=== PATIENT | female | born 1935 | race Caucasian/White ===

== ENCOUNTER → 2018-09-15 09:48 | Outpatient (CLI) | payer MEDICARE, OTHER ==
[2014-07-30 15:30] VITALS: BMI 30.4
[~2018-09-15 09:48] MED LIST: ELIQUIS2.5 MG PO; PERCOCET 10/3251 TA1 PO; VENTOLIN HFA18 GM INH; ZANTAC150 MG PO
== END | disposition home or self-care (01) ==
LOC: D.NM 09:48
PROVIDERS: ATTEND Orthopaedic Surgery
DX: T84.84XA Pain due to internal orthopedic prosthetic devices, implants and grafts, initial encounter (principal)

== ENCOUNTER → 2018-09-21 17:57 | Outpatient (CLI) | payer MEDICARE, OTHER ==
[2014-07-30 15:30] VITALS: BMI 30.4
== END | disposition home or self-care (01) ==
LOC: D.LABREF 17:57
PROVIDERS: ATTEND Orthopaedic Surgery
DX: M25.561 Pain in right knee (principal)

== ENCOUNTER 2018-09-22 11:46 | Inpatient (IN) | payer MEDICARE, OTHER ==
[~2018-09-22] VITALS: Ht 172.7 cm; Wt 96.2 kg
[2018-10-18] MEDS ORDERED: DEXILANT60 MG PO (14:26)
[2018-10-19 11:57] LABS: BASOPHILS 0.4 % (0-2); EOSINOPHILS 5.8 % (0-7); HEMATOCRIT 38.7 % (36.0-48.0); HEMOGLOBIN 12.8 g/dL (12-16); IMMATURE GRANULOCYTES 0.2 % (0-5); LYMPHOCYTES 20.8 % (15-50); MCH 29.4 pg (26.0-34.0); MCHC 33.1 g/dL (31.0-37.0); MEAN PLATELET VOLUME 11.2 fL (7.4-10.4); NEUTROPHILS 63.8 % (40-80); PLATELET COUNT 249 10x3/uL (130-400); RBC 4.35 10x6/uL (4.00-5.40); RDW 14.7 % (11.5-14.5); WBC 5.7 10x3/uL (4.8-10.8)
[2018-10-19 11:59] LABS: CALC OSMOLALITY 276 mosm/kg (275-300); CALCIUM 8.9 mg/dL (8.5-10.1); CARBON DIOXIDE 24.8 mmol/L (21.0-32.0); CHLORIDE - SERUM 103 mmol/L (98-107); CREATININE - SERUM 0.6 mg/dL (0.6-1.3); GLUCOSE 79 mg/dL (74-106); POTASSIUM - SERUM 3.6 mmol/L (3.5-5.1); SODIUM 140 mmol/L (136-145); UREA NITROGEN 11 mg/dL (7-18); eGFR NON AFRICAN AMERICAN > 90 mL/min (90-120)
[2018-10-19 12:02] LABS: INR 1.01 (0.85-1.17); PROTIME 12.8 SECONDS (11.6-15.0)
[2018-10-19 12:03] LABS: APTT 30.7 SECONDS (22.8-39.4)
[2018-10-19 12:48] LABS: APPEARANCE SL CLDY (CLEAR); COLOR YELLOW (YELLOW)
[2018-10-19 12:49] LABS: BACTERIA MANY /hpf (NONE SEEN); BILIRUBIN NEGATIVE (NEGATIVE); GLUCOSE NEGATIVE (NEGATIVE); GRANULAR CAST OCC /lpf (NONE SEEN); HYALINE CAST OCC /lpf (NONE SEEN); KETONE LARGE mg/dL (NEGATIVE); MUCUS <1+ /lpf (NONE SEEN); NITRITE NEGATIVE (NEGATIVE); PROTEIN TRACE mg/dL (NEGATIVE); RED CELLS - URINE 0-5 /hpf (0-5); UROBILINOGEN NORMAL (NORMAL); WHITE CELLS - URINE 25-50 /hpf (0-5)
--- NOTE | 2018-10-21 10:04 | NUR ---
1000-DR JASSO NOTIFIED OF UA RESULTS. HE WILL PLACE HER ON ORAL ANTIBIOTICS AND REPEAT UA DOS.
[2018-10-24] VITALS (13 sets, daily range): BP systolic 100–150; BP diastolic 53–78; BMI 32.3
[2018-10-24 09:08] LABS: APPEARANCE HAZY (CLEAR); BILIRUBIN NEGATIVE (NEGATIVE); COLOR YELLOW (YELLOW); GLUCOSE NEGATIVE (NEGATIVE); KETONE MODERATE mg/dL (NEGATIVE); NITRITE NEGATIVE (NEGATIVE); PROTEIN NEGATIVE (NEGATIVE); SPECIFIC GRAVITY 1.025 (1.005-1.020); UROBILINOGEN NORMAL (NORMAL); WHITE CELLS - URINE 0-5 /hpf (0-5)
[2018-10-24 09:09] LABS: BACTERIA FEW /hpf (NONE SEEN); CALCIUM OXALATE CRYSTALS 0-5 /hpf (NONE SEEN); EPITHELIAL CELLS 0-5 /hpf (0-5); MUCUS <1+ /lpf (NONE SEEN); RED CELLS - URINE OCC /hpf (0-5)
--- NOTE | 2018-10-24 09:52 | NUR ---
PLASMA BLADE SET TO 6/8 BOVIE PAD RIGHT THIGH [id number] EXP 04/26/20
--- NOTE | 2018-10-24 15:00 | NUR ---
PATIENT STILL ASLEEP. EASILY AROUSABLE. CL IN REACH WCTM
[2018-10-25 00:53] VITALS: BP 126/61
--- NOTE | 2018-10-25 00:53 | NUR ---
RESEVED REPORT FROM NURSE. PT LYING IN BED AT THIS TIME EYES CLOSED. NO SIGNS OF DISTRESS BREATHING EVEN AND UNLABORED. WILL CONTINUE PLAN OF CARE. CALL LIGHT IN REACH.
--- NOTE | 2018-10-25 02:29 | NUR ---
I have reviewed this patient and I concur with the Shift Assessment completed by the Licensed Practical Nurse today this shift.
[2018-10-25 05:42] VITALS: BP 124/54
[2018-10-25 06:25] LABS: HEMATOCRIT 32.2 % (36.0-48.0); HEMOGLOBIN 10.1 g/dL (12-16); MCH 28.6 pg (26.0-34.0); MCHC 31.4 g/dL (31.0-37.0); MCV 91.2 fL (80.0-100.0); MEAN PLATELET VOLUME 11.1 fL (7.4-10.4); RBC 3.53 10x6/uL (4.00-5.40); RDW 15.4 % (11.5-14.5); WBC 9.6 10x3/uL (4.8-10.8)
[2018-10-25 09:13] VITALS: BP 133/56
[2018-10-25 14:08] VITALS: BP 164/59
--- NOTE | 2018-10-25 16:01 | MORECARE ---
CASE MANAGEMENT DISCHARGE SUMMARY PATIENT: CAT CASTILLO UNIT: [id number] ADM DATE: 10/24/18 AGE: 82 : 37 SEX: F ROOM/BED: D.9460 AUTHOR: GRETCHEN,DOC PHYSICIAN: REFERRING PHYSICIAN: LYNETTE JASSO MD DATE OF SERVICE: 10/25/18 Discharge Plan Patient Name: CAT CASTILLO Facility: [facility]:[place] : 1935 Planned Disposition: [facility] Facility Anticipated Discharge Date: Discharge Date: Expected LOS: Initial Reviewer: [email or web address] Initial Review Date: 10/24/2018 Generated: 10/25/18 5:01 pm Comments DCP- Discharge Planning Updated by [email or web address]: Maricel Salazar on 10/25/18 3:[address] Patient Name: CAT CASTILLO Admission Status: Elective Accout number: [id number] Admission Date: 10-24-2018 : 1935 Admission Diagnosis: Attending: LYNETTE JASSO Current LOS: 1 Anticipated DC Date: Planned Disposition: [facility] Facility Primary Insurance: MEDICARE A & B Discharge Planning Comments: CM met with patient to complete initial dc planning assessment. CM educated patient on the CM role and verbal consent given by patient to complete assessment. Patient lives at home with her where she is independent with her care. At discharge patient plans to go to [facility]. PEYMAN signed and placed in chart. She feels this is a safe discharge. CM discussed availability of home health, rehab services, and medical equipment. Patient stated that she has a BSC, walker, cane at home. I will send clinicals to [facility] and let them know. Patient denied known discharge needs at this time. CM will continue to follow and will assist as needed with dc plans/needs. Marketing And Communications Officer: Maricel Salazar DCPIA - Discharge Planning Initial Assessment Updated by [email or web address]: Maricel Salazar on 10/25/18 3:59 pm * Is the patient Alert and Oriented? Yes * How many steps to enter\exit or inside your home? * PCP [facility] * Pharmacy [facility] * Preadmission Environment Home with Family * ADLs Independent * Equipment Bedside Commode Cane Walker * List name and contact numbers for known caregivers / representatives who currently or will assist patient after discharge: Harrison Castillo () [phone] * Verbal permission to speak to the caregivers and representatives has been obtained from the patient. N/A * Community resources currently utilized None * Additional services required to return to the preadmission environment? Yes * Can the patient safely return to the preadmission environment? No * Has this patient been hospitalized within the prior 30 days at any hospital? No Patient Name: CAT CASTILLO Page 96390 at 1601 All edits/amendments must be made on the electronic document DICTATION DATE: 10/25/181600 AUTO REPAIR SHOP MANAGER: MACKENZIE 10/25/18 160 RPT#: [id number] DC DATE: STATUS: ADM IN [facility] [address] [place] [address] END OF REPORT
[2018-10-25 17:47] VITALS: BP 145/58
--- NOTE | 2018-10-25 18:21 | NUR ---
I have reviewed this patient and I concur with the Shift Assessment completed by the Licensed Practical Nurse today this shift.
--- NOTE | 2018-10-25 19:35 | NUR ---
LYING IN BED. ALERT AND ORIENTED X4. RESP EVEN AND NONLABORED. O2 @ 2L/NC. BBS CTA BUT DIMINISHED IN BLL. BS HYPOACTIVE. DENIES N/V. ZOFRAN DRIP @ 4.7 ML/HR INFUSING IN LT AC. DRSG NOTED TO RT KNEE. EDEMA TO RT KNEE. SCD ON LLE. DENIES PAIN. SR ELEVATED X2. CL IN REACH.
--- NOTE | 2018-10-25 20:30 | NUR ---
STATES DR. MTZ CAME TO SEE HER. NEW ORDERS NOTED.
[2018-10-25 21:18] VITALS: BP 147/66
--- NOTE | 2018-10-25 22:30 | NUR ---
ADDITIONAL IV STARTED IN RT FOREARM FOR NS @ 75 ML/HR AND PROCAL @ 30 ML/HR.
[2018-10-25 22:41] LABS: HEMATOCRIT 30.8 % (36.0-48.0); HEMOGLOBIN 9.8 g/dL (12-16)
--- NOTE | 2018-10-25 23:00 | NUR ---
CONSENTS SIGNED AND ON CHART FOR EGD IN AM. PT VERBALIZED UNDERSTANDING OF BEING NPO AFTER MIDNIGHT.
[2018-10-26 01:20] VITALS: BP 120/63
[2018-10-26 05:08] LABS: BASOPHILS 0.2 % (0-2); EOSINOPHILS 0.4 % (0-7); HEMATOCRIT 30.1 % (36.0-48.0); HEMOGLOBIN 9.8 g/dL (12-16); IMMATURE GRANULOCYTES 0.2 % (0-5); LYMPHOCYTES 8.5 % (15-50); MCH 29.3 pg (26.0-34.0); MCHC 32.6 g/dL (31.0-37.0); MCV 90.1 fL (80.0-100.0); MEAN PLATELET VOLUME 11.4 fL (7.4-10.4); MONOCYTES 12.5 % (2-11); NEUTROPHILS 78.2 % (40-80); PLATELET COUNT 183 10x3/uL (130-400); RBC 3.34 10x6/uL (4.00-5.40); RDW 15.5 % (11.5-14.5)
[2018-10-26 05:31] LABS: CALC OSMOLALITY 274 mosm/kg (275-300); CALCIUM 7.9 mg/dL (8.5-10.1); CARBON DIOXIDE 19.7 mmol/L (21.0-32.0); CHLORIDE - SERUM 105 mmol/L (98-107); CREATININE - SERUM 0.6 mg/dL (0.6-1.3); GLUCOSE 88 mg/dL (74-106); POTASSIUM - SERUM 3.7 mmol/L (3.5-5.1); SODIUM 139 mmol/L (136-145); UREA NITROGEN 8 mg/dL (7-18); eGFR NON AFRICAN AMERICAN > 90 mL/min (90-120)
--- NOTE | 2018-10-26 05:47 | NUR ---
CPM ON AT THIS TIME.
[2018-10-26 05:58] VITALS: BP 136/64
[2018-10-26 06:48] LABS: INR 1.21 (0.85-1.17); PROTIME 14.7 SECONDS (11.6-15.0)
[2018-10-26 08:31] LABS: % SATURATION 11 % (15-55); IRON 21 ug/dl (35-150); TOTAL IRON BIND CAPACITY 185 ug/dl (260-445); UNSAT IRON BIND CAPACITY 164 ug/dl (150-375)
--- NOTE | 2018-10-26 09:00 | NUR ---
ASSESSMENT PER FLOW SHEET. PT IS BACK FROM GI LAB. SHE IS AWAKE AND WITHOUT DISTRESS.FAMILY AT BEDSIDE
[2018-10-26 09:47] VITALS: BP 140/71
--- NOTE | 2018-10-26 10:36 | NUR ---
SPOKE WITH ENRIQUE,BAGGAGEMAN. WE ARE WAITING FOR TELEMETRY TO BE AVAILABLE FOR USE
[2018-10-26 12:00] VITALS: BP 173/71
--- NOTE | 2018-10-26 12:03 | MORECARE ---
CASE MANAGEMENT DISCHARGE SUMMARY PATIENT: CAT CASTILLO UNIT: [id number] ADM DATE: 10/24/18 AGE: 82 : 37 SEX: F ROOM/BED: D.6202 AUTHOR: GRETCHEN,DOC PHYSICIAN: REFERRING PHYSICIAN: LYNETTE JASSO MD DATE OF SERVICE: 10/26/18 Discharge Plan Patient Name: CAT CASTILLO Facility: [facility]:[place] : 1935 Planned Disposition: Snf Facility Anticipated Discharge Date: Discharge Date: Expected LOS: Initial Reviewer: [email or web address] Initial Review Date: 10/24/2018 Generated: 10/26/18 1:03 pm Comments DCP- Discharge Planning Updated by [email or web address]: Maricel Salazar on 10/26/18 11:[address] REFERRAL SENT TO [facility] AND SPOKE WITH KYLE DCP- Discharge Planning Updated by [email or web address]: Maricel Salazar on 10/25/18 3:[address] Patient Name: CAT CASTILLO Admission Status: Elective Accout number: [id number] Admission Date: 10-24-2018 : 1935 Admission Diagnosis: Attending: LYNETTE JASSO Current LOS: 1 Anticipated DC Date: Planned Disposition: Snf Facility Primary Insurance: MEDICARE A & B Discharge Planning Comments: CM met with patient to complete initial dc planning assessment. CM educated patient on the CM role and verbal consent given by patient to complete assessment. Patient lives at home with her where she is independent with her care. At discharge patient plans to go to [facility]. PEYMAN signed and placed in chart. She feels this is a safe discharge. CM discussed availability of home health, rehab services, and medical equipment. Patient stated that she has a BSC, walker, cane at home. I will send clinicals to [facility] and let them know. Patient denied known discharge needs at this time. CM will continue to follow and will assist as needed with dc plans/needs. Insurance Plan Specialist: Maricel Salazar DCPIA - Discharge Planning Initial Assessment Updated by [email or web address]: Maricel Salazar on 10/25/18 3:59 pm * Is the patient Alert and Oriented? Yes * How many steps to enter\exit or inside your home? * PCP [facility] * Pharmacy [facility] * Preadmission Environment Home with Family * ADLs Independent * Equipment Bedside Commode Artie Raymundo * List name and contact numbers for known caregivers / representatives who currently or will assist patient after discharge: Harrison Castillo () [phone] * Verbal permission to speak to the caregivers and representatives has been obtained from the patient. N/A * Community resources currently utilized None * Additional services required to return to the preadmission environment? Yes * Can the patient safely return to the preadmission environment? No * Has this patient been hospitalized within the prior 30 days at any hospital? No External Providers External Provider: [facility] Next Contact Date: Service Request Date: Service Type: Resolution: Reviewer: Comments: Last DP export: 10/25/18 3:01 p Patient Name: CAT CASTILLO Page [phone] at 1203 All edits/amendments must be made on the electronic document DICTATION DATE: 10/26/181201 INSURANCE CONSULTANT: MACKENZIE 10/26/18 120 RPT#: [id number] DC DATE: STATUS: ADM IN [facility] [address] [place] [address] END OF REPORT
[2018-10-26 13:37] LABS: HEMATOCRIT 32.9 % (36.0-48.0); HEMOGLOBIN 10.5 g/dL (12-16)
--- NOTE | 2018-10-26 14:31 | NUR ---
RESTING,WITHOUT DISTRESS.
[2018-10-26 15:00] VITALS: Ht 172.7 cm; Wt 96.2 kg
--- NOTE | 2018-10-26 15:12 | MORECARE ---
CASE MANAGEMENT DISCHARGE SUMMARY PATIENT: CAT CASTILLO UNIT: [id number] ADM DATE: 10/24/18 AGE: 82 : 37 SEX: F ROOM/BED: D.3851 AUTHOR: GRETCHEN,DOC PHYSICIAN: REFERRING PHYSICIAN: LYNETTE JASSO MD DATE OF SERVICE: 10/26/18 Discharge Plan Patient Name: CAT CASTILLO Facility: [facility]:[place] : 1935 Planned Disposition: Nursing Home Facility Anticipated Discharge Date: Discharge Date: Expected LOS: Initial Reviewer: [email or web address] Initial Review Date: 10/24/2018 Generated: 10/26/18 4:11 pm Comments DCP- Discharge Planning Updated by [email or web address]: Maricel Salazar on 10/26/18 2:[address] Carey with [facility] called and they have accepted the patient when she is stable for discharge DCP- Discharge Planning Updated by [email or web address]: Maricel Salazar on 10/26/18 11:[address] REFERRAL SENT TO [facility] AND SPOKE WITH KYLE DCP- Discharge Planning Updated by [email or web address]: Maricel Salazar on 10/25/18 3:[address] Patient Name: CAT CASTILLO Admission Status: Elective Accout number: [id number] Admission Date: 10-24-2018 : 1935 Admission Diagnosis: Attending: LYNETTE JASSO Current LOS: 1 Anticipated DC Date: Planned Disposition: Nursing Home Facility Primary Insurance: MEDICARE A & B Discharge Planning Comments: CM met with patient to complete initial dc planning assessment. CM educated patient on the CM role and verbal consent given by patient to complete assessment. Patient lives at home with her where she is independent with her care. At discharge patient plans to go to [facility]. PEYMAN signed and placed in chart. She feels this is a safe discharge. CM discussed availability of home health, rehab services, and medical equipment. Patient stated that she has a BSC, walker, cane at home. I will send clinicals to [facility] and let them know. Patient denied known discharge needs at this time. CM will continue to follow and will assist as needed with dc plans/needs. Security Chief Museum: Maricel Salazar DCPIA - Discharge Planning Initial Assessment Updated by [email or web address]: Maricel Salazar on 10/25/18 3:59 pm * Is the patient Alert and Oriented? Yes * How many steps to enter\exit or inside your home? * PCP [facility] * Pharmacy [facility] * Preadmission Environment Home with Family * ADLs Independent * Equipment Bedside Commode Cane Walker * List name and contact numbers for known caregivers / representatives who currently or will assist patient after discharge: Harrison Castillo () [phone] * Verbal permission to speak to the caregivers and representatives has been obtained from the patient. N/A * Community resources currently utilized None * Additional services required to return to the preadmission environment? Yes * Can the patient safely return to the preadmission environment? No * Has this patient been hospitalized within the prior 30 days at any hospital? No Last DP export: 10/26/18 11:03 a Patient Name: CAT CASTILLO Page [phone] at 1512 All edits/amendments must be made on the electronic document DICTATION DATE: 10/26/181510 HEART SPECIALIST: MACKENZIE 10/26/181510 RPT#: [id number] DC DATE: STATUS: ADM IN [facility] [address] [place] [address] END OF REPORT
[2018-10-26 16:39] VITALS: BP 168/86
[2018-10-26 20:00] VITALS: BP 173/80
--- NOTE | 2018-10-26 20:40 | NUR ---
RESTING QUIETLY.NO DISTRESS NOTED. RESP UNLAOBRED.CARMEN WRAP TO RIGHT KNEE INTACT WITHOUT DRAINAGE NOTED. CPM IN USE AT THIS TIME. NO COMPLAINTS VOICED. IV INFUSING TO RFA WITHOUT REDNESS OR EDEMA NOTED. CL IN REACH
[2018-10-26 22:25] LABS: HEMATOCRIT 30.8 % (36.0-48.0); HEMOGLOBIN 10.1 g/dL (12-16)
[2018-10-27 00:51] VITALS: BP 132/60
--- NOTE | 2018-10-27 02:55 | NUR ---
I have reviewed this patient and I concur with the Shift Assessment completed by the Licensed Practical Nurse today this shift.
[2018-10-27 04:00] VITALS: BP 126/60
[2018-10-27 05:39] LABS: BASOPHILS 0.1 % (0-2); EOSINOPHILS 0.8 % (0-7); HEMATOCRIT 29.2 % (36.0-48.0); HEMOGLOBIN 9.4 g/dL (12-16); IMMATURE GRANULOCYTES 0.3 % (0-5); LYMPHOCYTES 9.5 % (15-50); MCH 28.6 pg (26.0-34.0); MCHC 32.2 g/dL (31.0-37.0); MCV 88.8 fL (80.0-100.0); MEAN PLATELET VOLUME 11.3 fL (7.4-10.4); MONOCYTES 12.1 % (2-11); NEUTROPHILS 77.2 % (40-80); PLATELET COUNT 199 10x3/uL (130-400); RBC 3.29 10x6/uL (4.00-5.40); RDW 15.1 % (11.5-14.5); WBC 7.3 10x3/uL (4.8-10.8)
[2018-10-27 06:10] LABS: ALBUMIN 2.5 g/dL (3.4-5.0); ALKALINE PHOSPHATASE 49 U/L (46-116); ALT (SGPT) 20 U/L (10-68); BILIRUBIN - TOTAL 0.46 mg/dL (0.2-1.3); CALC OSMOLALITY 274 mosm/kg (275-300); CALCIUM 8.2 mg/dL (8.5-10.1); CHLORIDE - SERUM 104 mmol/L (98-107); CREATININE - SERUM 0.5 mg/dL (0.6-1.3); GLUCOSE 107 mg/dL (74-106); POTASSIUM - SERUM 3.3 mmol/L (3.5-5.1); SODIUM 138 mmol/L (136-145); UREA NITROGEN 9 mg/dL (7-18); eGFR NON AFRICAN AMERICAN > 90 mL/min (90-120)
--- NOTE | 2018-10-27 08:00 | NUR ---
ASSESSMENT PER FLOW SHEET. PT IS WITHOUT DISTRESS.FALL PREVENTION IN PLACE. DOOR OPEN.CALL LIGHT IN REACH
--- NOTE | 2018-10-27 08:52 | NUR ---
Post op knee. Dressing change orders per Dr. Dyson.
[2018-10-27 09:39] VITALS: BP 125/86
--- NOTE | 2018-10-27 12:15 | NUR ---
Nutrition Follow Up: Chart reviewed Diet: Clear Liquid PO Intake: 15% meal avg No BM since admit Labs reviewed Meds noted including Reglan, Procalamine @ 30 ml/hr Rec advancing KEV as soon as medically feasible. RD following.
[2018-10-27 13:08] VITALS: BP 147/75
--- NOTE | 2018-10-27 13:27 | NUR ---
PT TO TAKE NAP. WISHES NOT TO BE DISTURBED PER .MONITOR
[2018-10-27 16:03] VITALS: BP 155/75
--- NOTE | 2018-10-27 19:54 | NUR ---
AWAKE,ALERT,NO COMPLAITNS VOICED.STATES LESS NAUSEA TODAY. RESP EVEN AND UNLABORED. NO DISTRESS NOTED. IV INFUSING TO RFA WITHOUT REDNESS OR EDEMA NOTED. CARMEN WRAP DRESSING INTACT TO RIGHT KNEE WITHOUT DRAINAGE NOTED. CPM IN USE AT THIS TIME. TOLERATING WELL. CL IN REACH
[2018-10-27 20:49] VITALS: BP 182/82
[2018-10-28 04:49] VITALS: BP 174/80
[2018-10-28 05:43] LABS: HEMATOCRIT 30.3 % (36.0-48.0); HEMOGLOBIN 9.9 g/dL (12-16); MCH 29.4 pg (26.0-34.0); MCHC 32.7 g/dL (31.0-37.0); MCV 89.9 fL (80.0-100.0); MEAN PLATELET VOLUME 11.7 fL (7.4-10.4); PLATELET COUNT 187 10x3/uL (130-400); RBC 3.37 10x6/uL (4.00-5.40); RDW 15.6 % (11.5-14.5); WBC 6.4 10x3/uL (4.8-10.8)
[2018-10-28 06:06] LABS: ALBUMIN 2.4 g/dL (3.4-5.0); ALKALINE PHOSPHATASE 50 U/L (46-116); ALT (SGPT) 16 U/L (10-68); CALC OSMOLALITY 279 mosm/kg (275-300); CALCIUM 8.3 mg/dL (8.5-10.1); CARBON DIOXIDE 27.3 mmol/L (21.0-32.0); CHLORIDE - SERUM 105 mmol/L (98-107); CREATININE - SERUM 0.4 mg/dL (0.6-1.3); GLUCOSE 102 mg/dL (74-106); POTASSIUM - SERUM 3.5 mmol/L (3.5-5.1); PROTEIN - SERUM 5.5 g/dL (6.4-8.2); SODIUM 141 mmol/L (136-145); UREA NITROGEN 10 mg/dL (7-18); eGFR NON AFRICAN AMERICAN > 90 mL/min (90-120)
--- NOTE | 2018-10-28 07:42 | NUR ---
PT RESTING IN BED WITH EYES CLOSED. AROUSED BY VERBAL STIMULI. DENIES ANY NEEDS AT THIS TIME. NO S/S OF ACUTE DISTRESS. CL IN PLACE.
--- NOTE | 2018-10-28 08:36 | NUR ---
TKA 10/24/[address] Dyson.
[2018-10-28 09:39] VITALS: BP 163/79
[2018-10-28 09:48] LABS: EOSINOPHILS 7 % (0-7); LYMPHOCYTES 10 % (15-50); MONOCYTES 11 % (2-11); NEUTROPHILS 72 % (40-80); PLATELET ESTIMATE NORMAL
[2018-10-28 09:49] LABS: CRENATED CELLS OCC
--- NOTE | 2018-10-28 10:49 | MORECARE ---
CASE MANAGEMENT DISCHARGE SUMMARY PATIENT: CAT CASTILLO UNIT: [id number] ADM DATE: 10/24/18 AGE: 82 : 37 SEX: F ROOM/BED: D.2201 AUTHOR: GRETCHEN,DOC PHYSICIAN: REFERRING PHYSICIAN: LYNETTE JASSO MD DATE OF SERVICE: 10/28/18 Discharge Plan Patient Name: CAT CASTILLO Facility: [facility]:[place] : 1935 Planned Disposition: Nursing Home Facility Anticipated Discharge Date: Discharge Date: Expected LOS: Initial Reviewer: [email or web address] Initial Review Date: 10/24/2018 Generated: 10/28/18 11:49 am Comments DCP- Discharge Planning Updated by [email or web address]: Maricel Salazar on 10/28/18 9:[address] imm served and explained DCP- Discharge Planning Updated by [email or web address]: Maricel Salazar on 10/26/18 2:[address] Carey with [facility] called and they have accepted the patient when she is stable for discharge DCP- Discharge Planning Updated by [email or web address]: Maricel Salazar on 10/26/18 11:[address] REFERRAL SENT TO [facility] AND SPOKE WITH KYLE DCP- Discharge Planning Updated by [email or web address]: Maricel Salazar on 10/25/18 3:[address] Patient Name: CAT CASTILLO Admission Status: Elective Accout number: [id number] Admission Date: 10-24-2018 : 1935 Admission Diagnosis: Attending: LYNETTE JASSO Current LOS: 1 Anticipated DC Date: Planned Disposition: Nursing Home Facility Primary Insurance: MEDICARE A & B Discharge Planning Comments: CM met with patient to complete initial dc planning assessment. CM educated patient on the CM role and verbal consent given by patient to complete assessment. Patient lives at home with her where she is independent with her care. At discharge patient plans to go to [facility]. PEYMAN signed and placed in chart. She feels this is a safe discharge. CM discussed availability of home health, rehab services, and medical equipment. Patient stated that she has a BSC, walker, cane at home. I will send clinicals to [facility] and let them know. Patient denied known discharge needs at this time. CM will continue to follow and will assist as needed with dc plans/needs. Sports Management Internship: Maricel Salazar DCPIA - Discharge Planning Initial Assessment Updated by [email or web address]: Maricel Salazar on 10/25/18 3:59 pm * Is the patient Alert and Oriented? Yes * How many steps to enter\exit or inside your home? * PCP [facility] * Pharmacy [facility] * Preadmission Environment Home with Family * ADLs Independent * Equipment Bedside Commode Cane Walker * List name and contact numbers for known caregivers / representatives who currently or will assist patient after discharge: Harrison Castillo () [phone] * Verbal permission to speak to the caregivers and representatives has been obtained from the patient. N/A * Community resources currently utilized None * Additional services required to return to the preadmission environment? Yes * Can the patient safely return to the preadmission environment? No * Has this patient been hospitalized within the prior 30 days at any hospital? No Coverage Notice Reviewer: [email or web address] - Maricel Salazar Notice Issued Date-Time: 10/28/2018 9:30 Notice Type: IM Discharge Notice Notice Delivered To: Patient Relationship to Patient: Compensation And Benefits Administrator Name: Delivery Method: HAND - Hand Delivered Dilma Days: Prior Verbal Notification: Recipient Understood Notice: Yes Recipient Signature: Yes Med Rec Note Co-signed by Attending: Coverage Notice Comment: Last DP export: 10/26/18 2:12 p Patient Name: CAT CASTILLO Page 25600 at 1049 All edits/amendments must be made on the electronic document DICTATION DATE: 10/28/18 1049 FISH AND GAME WARDEN: MACKENZIE 10/28/18 1049 RPT#: [id number] DC DATE: STATUS: ADM IN [facility] [address] [place] [address] END OF REPORT
[2018-10-28] MEDS ORDERED: PEPCID AC20 MG PO (13:17)
[2018-10-28] MEDS ORDERED: PROTONIX40 MG PO (13:17)
[2018-10-28] MEDS ORDERED: HYDROCODON-ACE1 EA10 PO (13:19)
[2018-10-28 13:38] VITALS: BP 149/69
--- NOTE | 2018-10-28 14:32 | NUR ---
DC INSTRUCTIONS AND EDUCATION DONE WITH PT. IV DC WITH TIP INTACT. NO S/S OF ACUTE DISTRESS. ASSISTED OFF FLOOR VIA WC BY [facility] AND ALL BELONGINGS SENT WITH PT.
--- NOTE | 2018-10-28 15:25 | MORECARE ---
CASE MANAGEMENT DISCHARGE SUMMARY PATIENT: CAT CASTILLO UNIT: [id number] ADM DATE: 10/24/18 AGE: 82 : 37 SEX: F ROOM/BED: D.3209 AUTHOR: GRETCHEN,DOC PHYSICIAN: REFERRING PHYSICIAN: LYNETTE JASSO MD DATE OF SERVICE: 10/28/18 Discharge Plan Patient Name: CAT CASTILLO Facility: [facility]:[place] : 1935 Planned Disposition: Alf Facility Anticipated Discharge Date: Discharge Date: 10/28/2018 Expected LOS: Initial Reviewer: [email or web address] Initial Review Date: 10/24/2018 Generated: 10/28/18 4:25 pm Comments DCP- Discharge Planning Updated by [email or web address]: Maricel Salazar on 10/28/18 2:[address] PATIENT DISCHARGED TO [facility] TO A SKILLED BED, THEY CAME AND PICKED HER UP AT 2:30 PM. AT BEDSIDE DCP- Discharge Planning Updated by [email or web address]: Maricel Salazar on 10/28/18 9:[address] imm served and explained DCP- Discharge Planning Updated by [email or web address]: Maricel Salazar on 10/26/18 2:[address] Carey with [facility] called and they have accepted the patient when she is stable for discharge DCP- Discharge Planning Updated by [email or web address]: Maricel Salazar on 10/26/18 11:[address] REFERRAL SENT TO [facility] AND SPOKE WITH KYLE DCP- Discharge Planning Updated by [email or web address]: Maricel Salazar on 10/25/18 3:[address] Patient Name: CAT CASTILLO Admission Status: Elective Accout number: [id number] Admission Date: 10-24-2018 : 1935 Admission Diagnosis: Attending: LYNETTE JASSO Current LOS: 1 Anticipated DC Date: Planned Disposition: Alf Facility Primary Insurance: MEDICARE A & B Discharge Planning Comments: CM met with patient to complete initial dc planning assessment. CM educated patient on the CM role and verbal consent given by patient to complete assessment. Patient lives at home with her where she is independent with her care. At discharge patient plans to go to [facility]. PEYMAN signed and placed in chart. She feels this is a safe discharge. CM discussed availability of home health, rehab services, and medical equipment. Patient stated that she has a BSC, walker, cane at home. I will send clinicals to [facility] and let them know. Patient denied known discharge needs at this time. CM will continue to follow and will assist as needed with dc plans/needs. Front Desk Admin: Maricel Salazar DCPIA - Discharge Planning Initial Assessment Updated by [email or web address]: Maricel Salazar on 10/25/18 3:59 pm * Is the patient Alert and Oriented? Yes * How many steps to enter\exit or inside your home? * PCP [facility] * Pharmacy [facility] * Preadmission Environment Home with Family * ADLs Independent * Equipment Bedside Commode Cane Walker * List name and contact numbers for known caregivers / representatives who currently or will assist patient after discharge: Harrison Castillo () [phone] * Verbal permission to speak to the caregivers and representatives has been obtained from the patient. N/A * Community resources currently utilized None * Additional services required to return to the preadmission environment? Yes * Can the patient safely return to the preadmission environment? No * Has this patient been hospitalized within the prior 30 days at any hospital? No Coverage Notice Reviewer: [email or web address] - Maricel Salazar Notice Issued Date-Time: 10/28/2018 9:30 Notice Type: IM Discharge Notice Notice Delivered To: Patient Relationship to Patient: Senior Business Objects Developer Name: Delivery Method: HAND - Hand Delivered Dilma Days: Prior Verbal Notification: Recipient Understood Notice: Yes Recipient Signature: Yes Med Rec Note Co-signed by Attending: Coverage Notice Comment: Last DP export: 10/28/18 9:49 a Patient Name: CAT CASTILLO Page [phone] at 1525 All edits/amendments must be made on the electronic document DICTATION DATE: 10/28/181523 TOPLINE BEADING MACHINE TENDER: MACKENZIE 10/28/181523 RPT#: [id number] DC DATE:10/28/18 STATUS: DIS IN [facility] [address] [place] [address] END OF REPORT
--- NOTE | 2018-10-31 07:51 | OP ---
PATIENT NAME: CAT CASTILLO MEDICAL RECORD: [id number] :39 LOCATION:D.MS [id number] ADMISSION DATE:10/24/18 SURGEON: LYNETTE JASSO MD DATE OF OPERATION: 10/24/2018 PREOPERATIVE DIAGNOSIS: Painful right total knee arthroplasty. POSTOPERATIVE DIAGNOSIS: Painful right total knee arthroplasty. PROCEDURE: Complete revision, all components, right total knee arthroplasty. SURGEON: Lynette Jasso MD DATE PITTER: Alvaro Billings APN INTRAOPERATIVE COMPLICATIONS: None. SUMMARY OF PATHOLOGIC FINDINGS: While the components were grossly loose, the components did very easily disassociate from the cement mantle leaving the cement mantle behind. This was consistent with the patient's prior bone scan showing potential looseness about the right total knee arthroplasty that had been done only 2-3 years ago in [place], [place]. The total knee removed did appear to be [employer]. Components replaced were the Triathlon total stabilized system with multiple augmentations both on the femoral side, the tibial side as well as offsets. Please see the operative chart for the complete list of the components. Essentially she required a size 6 with both stems 150 proximally and distally. OPERATIVE SUMMARY IN DETAIL: After obtaining the appropriate preoperative orthopedic surgery consent as well as anesthetic consultation, evaluation, and clearance, the patient was brought to the operating room and placed on the operating table in supine position. After adequate general laryngeal mask airway was administered, the tourniquet was placed on the proximal aspect of the right lower extremity. Right lower extremity was then prepped and draped in routine sterile fashion. The leg was elevated and exsanguinated, tourniquet was inflated to 350 mmHg. Incision was made over the previous incision. This was taken down to the level of the knee joint. Patellofemoral arthrotomy was performed and the patella was subluxed laterally with the knee in flexed position. There was no gross looseness. Polyethylene was removed. This was followed by removal of the tibial baseplate. Upon removal of the tibial baseplate with very simple upward taps, the cement and base plate [place] very gently and easily. At this point, attention was turned to the distal femur. Again, the distal femur very easily from the cement bone from the cement component interface leaving behind a very thick layer of cement. Serial and sequential reaming and broaching were done of the femur followed by cutting of the distal femur. The appropriate size augments were then placed and trialed. The trial was put into place. Attention was then turned to the proximal tibia. Again on the proximal tibia, serial and sequential reaming was then followed by cleanup cuts of the proximal tibia and the appropriate size trial was then put in place, taken through range of motion and found to be stable in all planes. After copious irrigation of the cavity as well as cauterization of all potential bleeding components, the knee ends were dried. The final components were set on the back table, cemented into place. After all cement was allowed to harden, the knee was taken through range of motion and found to be stable in all planes. At this point, the knee was treated with both OPERATIVE REPORT [id number] CAT CASTILLOsta to prevent bleeding as well as a gram of vancomycin as well as a gram of tobramycin. Final closure was achieved by Grayson Billings to include paramedian arthrotomy closure with #2 Ethibond followed by #1 Vicryl, 2-0 Vicryl and skin mildred. Sterile dressings were applied. At this point, the patient was awakened, taken to recovery room in stable condition. All final needle and sponge counts were correct. TRANSINT:[id number] Voice Confirmation ID: [id number] DOCUMENT ID: [id number] LOUISA COOLEY, LYNETTE NATION at 0751 CC: [id number] DICTATION DATE: 10/28/18 1200 SUPERVISOR MACHINING: 10/28/18 1514 DIS IN 10/28/18 [facility] [address] [place] [address]
--- NOTE | 2018-10-31 15:10 | MORECARE ---
CASE MANAGEMENT DISCHARGE SUMMARY PATIENT: CAT CASTILLO UNIT: [id number] ADM DATE: 10/24/18 AGE: 82 : 39 SEX: F ROOM/BED: D.2209 AUTHOR: GRETCHEN,DOC PHYSICIAN: REFERRING PHYSICIAN: LYNETTE JASSO MD DATE OF SERVICE: 10/31/18 Discharge Plan Patient Name: CAT CASTILLO Facility: [facility]:[place] : 1935 Planned Disposition: Senior Living Facility Anticipated Discharge Date: Discharge Date: 10/28/2018 Expected LOS: 0 Initial Reviewer: [email or web address] Initial Review Date: 10/24/2018 Generated: 10/31/18 4:10 pm Comments DCP- Discharge Planning Updated by [email or web address]: Maricel Salazar on 10/28/18 2:[address] PATIENT DISCHARGED TO [facility] TO A SKILLED BED, THEY CAME AND PICKED HER UP AT 2:30 PM. AT BEDSIDE DCP- Discharge Planning Updated by [id number]: Maricel Salazar on 10/28/18 9:[address] imm served and explained DCP- Discharge Planning Updated by [email or web address]: Maricel Salazar on 10/26/18 2:[address] Carey with [facility] called and they have accepted the patient when she is stable for discharge DCP- Discharge Planning Updated by [email or web address]: Maricel Salazar on 10/26/18 11:[address] REFERRAL SENT TO [facility] AND SPOKE WITH KYLE DCP- Discharge Planning Updated by [email or web address]: Maricel Salazar on 10/25/18 3:[address] Patient Name: CAT CASTILLO Admission Status: Elective Accout number: [id number] Admission Date: 10-24-2018 : 1935 Admission Diagnosis: Attending: LYNETTE JASSO Current LOS: 1 Anticipated DC Date: Planned Disposition: Senior Living Facility Primary Insurance: MEDICARE A & B Discharge Planning Comments: CM met with patient to complete initial dc planning assessment. CM educated patient on the CM role and verbal consent given by patient to complete assessment. Patient lives at home with her where she is independent with her care. At discharge patient plans to go to [facility]. PEYMAN signed and placed in chart. She feels this is a safe discharge. CM discussed availability of home health, rehab services, and medical equipment. Patient stated that she has a BSC, walker, cane at home. I will send clinicals to [facility] and let them know. Patient denied known discharge needs at this time. CM will continue to follow and will assist as needed with dc plans/needs. Mobile Disc Jockey: Maricel Salazar DCPIA - Discharge Planning Initial Assessment Updated by [email or web address]: Maricel Salazar on 10/25/18 3:59 pm * Is the patient Alert and Oriented? Yes * How many steps to enter\exit or inside your home? * PCP [facility] * Pharmacy [facility] * Preadmission Environment Home with Family * ADLs Independent * Equipment Bedside Commode Cane Walker * List name and contact numbers for known caregivers / representatives who currently or will assist patient after discharge: Harrison Castillo () [phone] * Verbal permission to speak to the caregivers and representatives has been obtained from the patient. N/A * Community resources currently utilized None * Additional services required to return to the preadmission environment? Yes * Can the patient safely return to the preadmission environment? No * Has this patient been hospitalized within the prior 30 days at any hospital? No Coverage Notice Reviewer: [id number] - Maricel Salazar Notice Issued Date-Time: 10/28/2018 9:30 Notice Type: IM Discharge Notice Notice Delivered To: Patient Relationship to Patient: Float Nurse Name: Delivery Method: HAND - Hand Delivered Dilma Days: Prior Verbal Notification: Recipient Understood Notice: Yes Recipient Signature: Yes Med Rec Note Co-signed by Attending: Coverage Notice Comment: Last DP export: 10/28/18 2:25 p Patient Name: CAT CASTILLO Page [id number] at 1510 All edits/amendments must be made on the electronic document DICTATION DATE: 10/31/181509 TREE MARKER: MACKENZIE 10/31/181509 RPT#: [id number] DC DATE:10/28/18 STATUS: DIS IN [facility] [address] [place] [address] END OF REPORT
== END 2018-10-28 14:33 | disposition home or self-care (01) | DRG 466 ==
LOC: D.SDCHOLD 10-19 10:00 → D.MS 10-24 07:00 → D.SDCHOLD 10-24 07:00 → D.MS 10-24 11:54 → D.SDCHOLD 10-24 15:15 → D.MS 10-28 14:33
PROVIDERS: Emergency Medicine; Internal Medicine Gastroenterology; ADMIT Orthopaedic Surgery; ATTEND Orthopaedic Surgery
PROC: 0SRC0J9 Replacement of Right Knee Joint with Synthetic Substitute, Cemented, Open Approach (ICD-10-PCS; 2018-10-24)
PROC: 0SPC0JZ Removal of Synthetic Substitute from Right Knee Joint, Open Approach (ICD-10-PCS; principal; 2018-10-24 08:30)
PROC: 0W3P8ZZ Control Bleeding in Gastrointestinal Tract, Via Natural or Artificial Opening Endoscopic (ICD-10-PCS; 2018-10-26)
DX: T84.84XA Pain due to internal orthopedic prosthetic devices, implants and grafts, initial encounter (principal); K29.71 Gastritis, unspecified, with bleeding; D62 Acute posthemorrhagic anemia; J45.909 Unspecified asthma, uncomplicated; I48.0 Paroxysmal atrial fibrillation

== ENCOUNTER 2019-01-03 10:26 | Day surgery (SDC) | payer MEDICARE, OTHER ==
[~2019-01-03] VITALS: Ht 172.7 cm; Wt 94.8 kg
[~2019-01-03 10:26] MED LIST changes: +DEXILANT60 MG PO; +HYDROCODON-ACE1 EA10 PO; +PEPCID AC20 MG PO; +PROTONIX40 MG PO
[2019-01-03 10:46] LABS: BASOPHILS 0.3 % (0-2); EOSINOPHILS 2.8 % (0-7); HEMATOCRIT 34.6 % (36.0-48.0); HEMOGLOBIN 11.3 g/dL (12-16); IMMATURE GRANULOCYTES 0.2 % (0-5); LYMPHOCYTES 16.8 % (15-50); MCH 29.4 pg (26.0-34.0); MCHC 32.7 g/dL (31.0-37.0); MCV 89.9 fL (80.0-100.0); MEAN PLATELET VOLUME 10.5 fL (7.4-10.4); MONOCYTES 7.3 % (2-11); NEUTROPHILS 72.6 % (40-80); RBC 3.85 10x6/uL (4.00-5.40); RDW 14.2 % (11.5-14.5); WBC 6.4 10x3/uL (4.8-10.8)
[2019-01-03 10:51] LABS: PLATELET COUNT 289 10x3/uL (130-400)
[2019-01-03 11:36] LABS: CALC OSMOLALITY 277 mosm/kg (275-300); CALCIUM 8.6 mg/dL (8.5-10.1); CARBON DIOXIDE 29.2 mmol/L (21.0-32.0); CHLORIDE - SERUM 105 mmol/L (98-107); CREATININE - SERUM 0.7 mg/dL (0.6-1.3); GLUCOSE 87 mg/dL (74-106); SODIUM 140 mmol/L (136-145); UREA NITROGEN 13 mg/dL (7-18); eGFR NON AFRICAN AMERICAN 85 mL/min (90-120)
[2019-01-03 13:46] VITALS: BP 147/80; Ht 172.7 cm; Wt 94.8 kg
--- NOTE | 2019-01-03 16:47 | NUR ---
[address] VILLALPANDO FOR UPDRAFT BREATHING TREATMENT. 1605 BREATHING TREATMENT COMPLETED. LUNGS CLEAR BILATERALLY. PT IS NOT COUGHING AND DRINKING COFFEE. STATES SHE FEELS MUCH BETTER AND THAT SHE HAS NOT HAD "AN ASTHMA ATTACK IN A LONG TIME." 1633 PT VOICES HER DESIRE TO BE DISCHARGED HOME. COVERED DISCHARGED INSTRUCTIONS WITH PT AND HER AND DISCHARGE PACKET GIVEN. IV DC'D/CATHETER INTACT/PRESSURE HELD UNTIL BLEEDING CEASED AND PRESSURE BANDAGE APPLIED.
--- NOTE | 2019-01-06 11:25 | OP ---
PATIENT NAME: CAT CASTILLO MEDICAL RECORD: [id number] :39 LOCATION:D.OPS ADMISSION DATE: SURGEON: KARLEY VILLALPANDO MD DATE OF OPERATION: 01/03/2019 PREOPERATIVE DIAGNOSES: 1. Bleeding gastric polyps. 2. Gastric antral vascular ectasias. POSTOPERATIVE DIAGNOSES: 1. Bleeding gastric polyps. 2. Gastric antral vascular ectasias. 3. About 26 polyps in the stomach, the largest of these was the cardial polyp and this was sent for pathologic examination. The other polyps were ablated. 4. Paraesophageal hernia. 5. Conteh's esophagus. PROCEDURES: 1. Esophagogastroduodenoscopy. 2. Gastric hot biopsy forceps polypectomy. 3. Endoscopic ablation of 25 gastric polyps utilizing the argon plasma buffing wheel former machine. ENDOSCOPIC COURSE: The patient was conveyed to the endoscopy suite electively on 01/03/2019. IV sedation was induced by the anesthesia staff. A bite-block was inserted. A gastroscope was inserted into the mouth. It was advanced easily into the hypopharynx. The esophagus was easily intubated as was as the stomach and the duodenum. Upon withdrawal, retroflexed and angulus views were obtained. No antral biopsies were obtained; but later in the procedure, biopsy in the area of Conteh's was performed. The largest of the polyps appeared to be a fundal polyp and this was grasped with an endoscopic hot biopsy forceps device and the polypectomy was performed. I then utilized the argon plasma buffing wheel former machine with the esophageal setting in the forced mode to ablate the 25 other polyps, some of which may have bled in the past. The endoscope was then withdrawn into the distal esophagus and distal esophageal biopsies were obtained in the area of Conteh's esophagus. The endoscope was then withdrawn under direct vision. I will see the patient in my office in 2-3 weeks to discuss the endoscopic findings. TRANSINT:[id number] Voice Confirmation ID: [id number] DOCUMENT ID: [id number] KARLEY VILLALPANDO MD at 1125 CC: [id number] DICTATION DATE: 01/03/19 1746 UNCLAIMED PROPERTY MANAGER: 01/03/19 2145 [facility] 01/03/19 [place] [address]
== END 2019-01-03 16:42 | disposition home or self-care (01) ==
LOC: D.OPS 10:26
PROVIDERS: ATTEND Surgery
DX: K31.7 Polyp of stomach and duodenum (principal); K31.819 Angiodysplasia of stomach and duodenum without bleeding; K44.9 Diaphragmatic hernia without obstruction or gangrene; K22.70 Barrett's esophagus without dysplasia; Z01.812 Encounter for preprocedural laboratory examination